=== PATIENT | male | born 1980 | race Caucasian/White ===

== ENCOUNTER 2021-01-27 19:42 | Emergency (ER) | payer SELFPAY ==
[2021-01-27 19:53] VITALS: BP 161/113; PULSE 97; TEMP 99.4; BMI 34.4
== END 2021-01-27 22:29 | disposition home or self-care (01) ==
LOC: FER 19:42
DX: R21 Rash and other nonspecific skin eruption (principal)
CPT/HCPCS: 82962; 93971-TC; 99284-25